=== PATIENT | female | born 1960 | race Caucasian/White ===

== ENCOUNTER 2016-04-24 23:04 | Emergency (ER) | payer MEDICARE, OTHER, MEDICAID ==
[~2016-04-24] VITALS: Ht 157.5 cm; Wt 76.0 kg
[~2016-04-24 23:04] MED LIST: CYCL5TAB PO; FENT50DI T-DERMAL; FISH500C; FURO1TAB60 PO; LORA-373 PO; LYRI50CA PO; MORP15IN3; NITR50VP; PREV30CA11 PO; PROM25TA5 PO; ROSU20 PO; SERO300T PO; WARF-60 PO; [UNRECOGNIZED DRUG - CODE] PO
[2016-04-24 23:17] VITALS: BP 103/59; PULSE 69; RESP 18; TEMP 98.5; O2SAT 96
[2016-04-24] MEDS ORDERED: CARV3.12 PO (23:43)
[2016-04-24] MEDS ORDERED: COUM7.5T PO (23:43)
--- NOTE | 2016-04-24 23:52 | PD ---
HPI Chief Complaint: Bleeding Time Seen by Provider: 23:44 Travel History International Travel<30 days: No Contact w/Intl Traveler<30days: No Traveled to known affect area: No History of Present Illness HPI This 55-year-old female had heavy bleeding from a scratch on her leg. She has a history of angina and is on Coumadin. She had surgery recently and was taken off her Coumadin. She has been restarting it. Yesterday she scratch leg and had some bleeding from her left leg which tonight she was having heavy bleeding from her left right leg. She just had a superficial scratch. Paramedics were able to control the bleeding with a pressure dressing. She says she fell 2 days ago and has a large bruise on her buttock. She says she's been having pain in her buttock. She is on a lot of pain medication PFSH Past Medical History Hx Anticoagulant Therapy: Yes Arthritis: Yes (CHRONIC BACK & DJD) Asthma: No Autoimmune Disease: No Blood Disorders: No Bipolar Disorder: Yes Anxiety: Yes Depression: Yes Heart Rhythm Problems: Yes Cancer: Yes (MELANOMA FACE) Cardiac Catheterization: Yes (X8) Cardiovascular Problems: Yes High Cholesterol: Yes Chemotherapy: No Chest Pain: Yes Congestive Heart Failure: Yes COPD: No Cerebrovascular Accident: Yes Coronary Artery Disease: Yes Diabetes: Yes (borderline) Patient Takes Glucophage: Yes Diminished Hearing: No Deep Vein Thrombosis: Yes ( & PE) Endocrine: Yes Gastrointestinal Disorders: Yes (GASTROPORESIS, GERD, ULCER HX) GERD: No Glaucoma: No Genitourinary: No Headaches: Yes Hepatitis: No Hiatal Hernia: Yes Hypertension: Yes Immune Disorder: No Kidney Stones: Yes Musculoskeletal: Yes ( SHATTERED COCCYX, SLIPPED DISCS, ARTHRITIS) Neurologic: Yes (TIA, NUMBNESS ARMS/ HANDS (TRANSIENT)) Psychiatric: Yes (CLAUSTRAPHBIA, ANXIETY) Reproductive: No Respiratory: Yes Integumentary: Yes (ULCER BETWEEN LEGS) Immunizations Current: Yes Migraines: No Myocardial Infarction: No Radiation Therapy: No Renal Failure: No Seizures: No Sickle Cell Disease: No Sleep Apnea: No Thyroid Disease: No Ulcer: No Tetanus Vaccination: Unknown Influenza Vaccination: No PNEUMOCCOCAL Vaccine (Year): 2 ?: Not Menopausal: Yes : 4 Para: 3 Miscarriage: 1 Past Surgical History Abdominal Surgery: Yes (CHOLECYSTECTOMY, APPENDECTOMY) AICD: No Appendectomy: Yes Arteriovenous Shunt: No Body Medical Devices: HARDWARE LEFT LEG Cardiac Surgery: Yes (CABG X 2) Cholecystectomy: Yes Coronary Artery Bypass Graft: Yes (X 2 VESSELS) Coronary Stent: Yes (X1) Ear Surgery: No Endocrine Surgery: No Eye Surgery: No Genitourinary Surgery: No Gynecologic Surgery: Yes (HYSTERECTOMY) Hysterectomy: Yes Insulin Pump: No Joint Replacement: No Neurologic Surgery: No Oral Surgery: No Pacemaker: No Thoracic Surgery: Yes Other Surgery: Yes Social History Alcohol Use: No (DENIES) Tobacco Use: No (today she denies using any tobacco products) Substance Use: No Allergies-Medications (Allergen,Severity, Reaction): Coded Allergies: No Known Allergies (Verified , 04/24/16) Reported Meds & Prescriptions Reported Meds & Active Scripts Active Fentanyl Patch 72 HR (Fentanyl) 50 Mcg/Hr Patch 50 Mcg T-DERMAL Q72H Remove old patch when new one placed. Lyrica (Pregabalin) 50 Mg Cap 50 Mg PO BID Reported Carvedilol 3.125 Mg Tab 3.125 Mg PO BID Coumadin (Warfarin) 7.5 Mg Tab 7.5 Mg PO DAILY Seroquel (Quetiapine Fumarate) 300 Mg Tab 300 Mg PO BID Crestor (Rosuvastatin Calcium) 20 Mg Tab 20 Mg PO DAILY Fish Oil ([place]-3 Fatty Acids) Unknown Strength Cap Unknown Dose Flexeril (Cyclobenzaprine HCl) 5 Mg Tab 5 Mg PO TID Lasix (Furosemide) 40 Mg Tab 40 Mg PO DAILY Lipofen (Fenofibrate) 50 Mg Cap 50 Mg PO DAILY Lorazepam 0.5 Mg Tab 0.5 Mg PO DAILY PRN Nitroglycerin 5 Mg/Ml Inj 0.4 Phenergan (Promethazine HCl) 25 Mg Tab 25 Mg PO ONCE Prevacid (Lansoprazole) 30 Mg Capdr 40 Mg PO DAILY Morphine Sulfate 15 Mg/Ml Inj 30 Review of Systems General / Constitutional: No: Fever, Chills Eyes: No: Diploplia, Blurred Vision Cardiovascular: No: Chest Pain or Discomfort Gastrointestinal: No: Nausea, Vomiting Musculoskeletal: Positive: Myalgias, Pain Hematologic/Lymphatic: Positive: Easy Bruising Physical Exam Narrative * GENERAL: Well-developed female SKIN: Warm and dry. There is a large ecchymosis on the low back/buttock area. The site of bleeding was a small varicocele on the leg which is not bleeding at this time HEAD: Atraumatic. Normocephalic. EYES: Pupils equal and round. No scleral icterus. No injection or drainage. ENT: No nasal bleeding or discharge. Mucous membranes pink and moist. NECK: Trachea midline. No JVD. CARDIOVASCULAR: Regular rate and rhythm. No murmur appreciated. RESPIRATORY: No accessory muscle use. Clear to auscultation. Breath sounds equal bilaterally. GASTROINTESTINAL: Abdomen soft, non-tender, nondistended. Hepatic and splenic margins not palpable. MUSCULOSKELETAL: No obvious deformities. No clubbing. No cyanosis. No edema. NEUROLOGICAL: Awake and alert. No obvious cranial nerve deficits. Motor grossly within normal limits. Normal speech. There is tenderness of the lower back PSYCHIATRIC: Appropriate mood and affect; insight and judgment normal. Data Data Last Documented VS Vital Signs Date Time Temp Pulse Resp B/P Pulse Ox O2 Delivery O2 Flow Rate FiO2 04/24/16 23:23 69 18 96 Room Air 04/24/16 23:17 98.5 103/59 Orders Complete Blood Count With Diff (04/24/16 23:44) Prothrombin Time / Inr (Pt) (04/24/16 23:44) Act Partial Throm Time (Ptt) (04/24/16 23:44) Spine, Lumbar - Ltd (Ap & Lat) (04/24/16 23:44) MDM Medical Decision Making Medical Screen Exam Complete: Yes Emergency Medical Condition: Yes Medical Record Reviewed: Yes Differential Diagnosis Differential includes coagulopathy, bleeding due to varicose vein, back injury Narrative Course PT/INR and CBC have been ordered as well as x-rays of the lumbar spine Diagnosis Primary Impression: Bleeding from varicose vein Qualified Code: I83.891 - Bleeding from varicose vein, right Disposition: DISCHARGE HOME Condition: Stable Rajeev Rainey MD Apr 24, 2016 23:52
--- NOTE | 2016-04-25 00:14 | RADHPO ---
EXAM DATE/TIME: 04/24/2016 23:53 [facility] COMPARISON: No previous studies available for comparison. INDICATIONS : Lower back pain after patient fell 3 days ago MEDICAL HISTORY : None. SURGICAL HISTORY : None. ENCOUNTER: Initial ACUITY: 3 days PAIN SCORE: 8/10 LOCATION: Lumbar spine FINDINGS: Grade 1 anterolisthesis of L4 on L5 with multilevel disc space narrowing. Anterior osteophyte formati on at L2-L5 noted. Facet hypertrophy at L4-5 and L5-S1. No compression deformity. CONCLUSION: Degenerative changes are noted as above. Jaden Vance MD on April 25, 2016 at 0:12 Board Certified Radiologist. This report was verified electronically.
[2016-04-25 00:26] LABS: AUTOMATED NEUTROPHIL # 3.6 TH/MM3 (1.8-7.7); BASOPHIL # 0.1 TH/MM3 (0-0.2); BASOPHIL % 0.7 % (0.0-2.0); EOSINOPHIL # 0.7 TH/MM3 (0-0.4); EOSINOPHIL % 9.7 % (0.0-4.0); HEMO FLAGS DIFF FINAL; LYMPH % 33.2 % (9.0-44.0); LYMPHOCYTE # 2.5 TH/MM3 (1.0-4.8); MEAN CELL VOLUME 86.1 FL (80.0-100.0); MEAN CORPUSCULAR HEMOGLOBIN 28.3 PG (27.0-34.0); MEAN CORPUSCULAR HGB CONC 32.8 % (32.0-36.0); MONO % 7.4 % (0.0-8.0); PLATELET COUNT 239 TH/MM3 (150-450); RED BLOOD COUNT 4.06 MIL/MM3 (4.00-5.30); RED CELL DISTRIBUTION WIDTH 13.6 % (11.6-17.2); WHITE BLOOD COUNT 7.5 TH/MM3 (4.0-11.0)
[2016-04-25 00:37] LABS: APTT (PATIENT) 33.9 SEC (24.3-30.1); INTERNATIONAL NORMALIZED RATIO 1.6 RATIO; PROTHROMBIN TIME - PATIENT 18.4 SEC (9.8-11.6)
[2016-04-25 00:43] VITALS: BP 102/60; PULSE 83; RESP 18; O2SAT 96
--- NOTE | 2016-04-25 01:18 | PD ---
Physical Exam Time Seen by Provider: 01:[address] Sanders left this patient with me to check the results of the coagulation profile as well as the lumbar spine. He expected the patient would be discharged. Data Data Last Documented VS Vital Signs Date Time Temp Pulse Resp B/P Pulse Ox O2 Delivery O2 Flow Rate FiO2 04/25/16 00:43 83 18 102/60 96 Room Air 04/24/16 23:17 98.5 Orders Complete Blood Count With Diff (04/24/16 23:44) Prothrombin Time / Inr (Pt) (04/24/16 23:44) Act Partial Throm Time (Ptt) (04/24/16 23:44) Spine, Lumbar - Ltd (Ap & Lat) (04/24/16 23:44) Labs Laboratory Tests Test 04/25/16 00:12 White Blood Count 7.5 TH/MM3 Red Blood Count 4.06 MIL/MM3 Hemoglobin 11.5 GM/DL Hematocrit 35.0 % Mean Corpuscular Volume 86.1 FL Mean Corpuscular Hemoglobin 28.3 PG Mean Corpuscular Hemoglobin 32.8 % Concent Red Cell Distribution Width 13.6 % Platelet Count 239 TH/MM3 Mean Platelet Volume 8.8 FL Neutrophils (%) (Auto) 49.0 % Lymphocytes (%) (Auto) 33.2 % Monocytes (%) (Auto) 7.4 % Eosinophils (%) (Auto) 9.7 % Basophils (%) (Auto) 0.7 % Neutrophils # (Auto) 3.6 TH/MM3 Lymphocytes # (Auto) 2.5 TH/MM3 Monocytes # (Auto) 0.6 TH/MM3 Eosinophils # (Auto) 0.7 TH/MM3 Basophils # (Auto) 0.1 TH/MM3 CBC Comment DIFF FINAL Differential Comment Prothrombin Time 18.4 SEC Prothromb Time International 1.6 RATIO Ratio Activated Partial 33.9 SEC Thromboplast Time [facility] Medical Record Reviewed: Yes Supervised Visit with ДМИТРИЙ: Yes Interpretation(s) X-rays of the lumbar spine show degenerative changes but no fracture or subluxation. The CBC is normal with normal platelets and a hemoglobin of 11.5 and hematocrit of 35. The coagulation profile shows a ProTime of 18.4, INR 1.6 , APTT of 33.9. Differential Diagnosis Fracture lumbar spine, subluxation lumbar spine, acute lumbar strain, anemia, thrombocytopenia, coagulopathy from Coumadin Narrative Course The patient has an acute lumbosacral strain. Her INR is only 1.6. The patient has not bled since a compressive bandage was put on her leg. Her platelets are normal. Diagnosis Primary Impression: Bleeding from varicose vein Qualified Code: I83.891 - Bleeding from varicose vein, right Additional Instruction: Keep the compressive bandage on for several days. We gave you the results of your blood work, take the blood work to your primary care physician. Disposition: 01 DISCHARGE HOME Condition: Stable Toño Cali MD Apr 25, 2016 01:18
[2016-04-25 01:27] VITALS: BP 95/50
== END 2016-04-25 01:46 | disposition home or self-care (01) ==
LOC: PHED 23:04
DX: I83.891 Varicose veins of right lower extremity with other complications (principal); I10 Essential (primary) hypertension; E78.00 Pure hypercholesterolemia, unspecified; E11.9 Type 2 diabetes mellitus without complications; Z79.01 Long term (current) use of anticoagulants
CPT/HCPCS: 72100; 85025; 85610; 85730; 99284

== ENCOUNTER 2017-01-09 01:20 | Emergency (ER) | payer MEDICARE, OTHER ==
[~2017-01-09] VITALS: Ht 157.5 cm; Wt 68.0 kg
[~2017-01-09 01:20] MED LIST changes: +CARV3.12 PO; +COUM7.5T PO; -LORA-373 PO; +LORA0.5T PO; -PREV30CA11 PO; +PREV30CA36 PO; -WARF-60 PO
[2017-01-09 01:33] VITALS: BP 163/81; PULSE 73; RESP 18; TEMP 98.4; O2SAT 100
[2017-01-09] MEDS ORDERED: NITR1SUB3 SL (01:53)
[2017-01-09] MEDS ORDERED: morphine PO (01:53)
[2017-01-09] MEDS ORDERED: FURO80TA PO (01:53)
[2017-01-09 02:30] VITALS: BP 120/65; PULSE 74; RESP 16; O2SAT 94
--- NOTE | 2017-01-09 02:43 | PD ---
HPI Chief Complaint: Chest Pain Time Seen by Provider: 02:26 Travel History International Travel<30 days: No Contact w/Intl Traveler<30days: No Traveled to known affect area: No History of Present Illness HPI The patient is a 56-year-old female with a strong history of coronary artery disease, she has had 3 coronary bypass grafts, last one being 7 years ago. Her last angiogram was done 3 years ago. She is on Coumadin for pulmonary emboli. She complains of a stabbing, sharp, pressure pain in the near the left breast beginning at 6:30 PM yesterday. It is a constant pain and associated with nausea, shortness of breath, diaphoresis but there is no radiation of pain. She denies any syncopal or near syncopal spells. She had a stress test done 6 months ago[address] She states Dr. Almonte is her doctor naturopathic and she wanted to do another catheterization but never got around to it. She quit smoking 15 years ago. She does have a strong family history of heart disease and this is why she had her initial coronary catheterization, always stress test and other tests were normal. PFSH Past Medical History Hx Anticoagulant Therapy: Yes Arthritis: Yes (CHRONIC BACK & DJD) Asthma: No Atrial Fibrillation: Yes Autoimmune Disease: No Blood Disorders: No Bipolar Disorder: Yes Anxiety: Yes Depression: Yes Heart Rhythm Problems: Yes Cancer: Yes (MELANOMA FACE) Cardiac Catheterization: Yes (X8) Cardiovascular Problems: Yes High Cholesterol: Yes Chemotherapy: No Chest Pain: Yes Congestive Heart Failure: Yes COPD: No Cerebrovascular Accident: Yes Coronary Artery Disease: Yes Diabetes: Yes (borderline) Diminished Hearing: No Deep Vein Thrombosis: Yes ( & PE) Endocrine: Yes Gastrointestinal Disorders: Yes (GASTROPORESIS, GERD, ULCER HX) GERD: No Glaucoma: No Genitourinary: No Headaches: Yes Hepatitis: No Hiatal Hernia: Yes Hypertension: Yes Immune Disorder: No Kidney Stones: Yes Musculoskeletal: Yes ( SHATTERED COCCYX, SLIPPED DISCS, ARTHRITIS) Neurologic: Yes (TIA, NUMBNESS ARMS/ HANDS (TRANSIENT)) Psychiatric: Yes (CLAUSTRAPHBIA, ANXIETY) Reproductive: No Respiratory: Yes Integumentary: Yes (ULCER BETWEEN LEGS) Immunizations Current: Yes Migraines: No Myocardial Infarction: No Radiation Therapy: No Renal Failure: No Seizures: No Sickle Cell Disease: No Sleep Apnea: No Thyroid Disease: No Ulcer: No Tetanus Vaccination: > 5 Years Influenza Vaccination: No PNEUMOCCOCAL Vaccine (Year): 2 ?: Not LMP: hysterectomy Menopausal: Yes : 4 Para: 3 Miscarriage: 1 Past Surgical History Abdominal Surgery: Yes (CHOLECYSTECTOMY, APPENDECTOMY) AICD: No Appendectomy: Yes Arteriovenous Shunt: No Body Medical Devices: HARDWARE LEFT LEG Cardiac Surgery: Yes (CABG X 2) Cholecystectomy: Yes Coronary Artery Bypass Graft: Yes (X 2 VESSELS) Coronary Stent: Yes (X1) Ear Surgery: No Endocrine Surgery: No Eye Surgery: No Genitourinary Surgery: No Gynecologic Surgery: Yes (HYSTERECTOMY) Hysterectomy: Yes Insulin Pump: No Joint Replacement: No Neurologic Surgery: No Oral Surgery: No Pacemaker: No Thoracic Surgery: Yes Other Surgery: Yes Social History Alcohol Use: No (DENIES) Tobacco Use: No (today she denies using any tobacco products) Substance Use: No Allergies-Medications (Allergen,Severity, Reaction): Coded Allergies: No Known Allergies (Verified Adverse Reaction, Unknown, 01/09/17) Reported Meds & Prescriptions Reported Meds & Active Scripts Active Reported Furosemide 80 Mg Tab 80 Mg PO DAILY Nitroglycerin SL (Nitroglycerin) 0.4 Mg Subl 0.4 Mg SL DIRECTED PRN ONE TABLET UNDER THE TONGUE NEEDED FOR CHEST PAIN, MAY REPEAT EVERY FIVE MINUTES FOR A TOTAL OF 3 DOSES OR CALL 911 IF NO RELIEF [morphine] 30 Mg PO Carvedilol 3.125 Mg Tab 3.125 Mg PO BID Coumadin (Warfarin) 7.5 Mg Tab 7.5 Mg PO DAILY Crestor (Rosuvastatin Calcium) 20 Mg Tab 20 Mg PO DAILY Fish Oil ([place]-3 Fatty Acids) Unknown Strength Cap Unknown Dose Flexeril (Cyclobenzaprine HCl) 5 Mg Tab 5 Mg PO TID Lipofen (Fenofibrate) 50 Mg Cap 50 Mg PO DAILY Phenergan (Promethazine HCl) 25 Mg Tab 25 Mg PO ONCE Prevacid (Lansoprazole) 30 Mg Capdr 40 Mg PO DAILY Review of Systems Except as stated in HPI: all other systems reviewed are Neg Physical Exam Narrative GENERAL: The patient is alert, oriented 3, anxious appearing in slight apparent distress with her chest discomfort. The blood pressure is 163/81 but the rest the vital signs are normal. SKIN: Focused skin assessment warm/dry. HEAD: Atraumatic. Normocephalic. EYES: Pupils equal and round. No scleral icterus. No injection or drainage. ENT: No nasal bleeding or discharge. Mucous membranes pink and moist. NECK: Trachea midline. No JVD. CARDIOVASCULAR: Regular rate and rhythm. No murmur appreciated. I can completely reproduce the patient's pain by pressing on the chest wall where she perceives her pain. RESPIRATORY: No accessory muscle use. Clear to auscultation. Breath sounds equal bilaterally. GASTROINTESTINAL: Abdomen soft, non-tender, nondistended. Hepatic and splenic margins not palpable. MUSCULOSKELETAL: No obvious deformities. No clubbing. No cyanosis. No edema. NEUROLOGICAL: Awake and alert. No obvious cranial nerve deficits. Motor grossly within normal limits. Normal speech. PSYCHIATRIC: Appropriate mood and affect; insight and judgment normal. Data Data Last Documented VS Vital Signs Date Time Temp Pulse Resp B/P (MAP) Pulse Ox O2 Delivery O2 Flow Rate FiO2 01/09/17 03:30 98.3 70 16 106/68 (81) 100 Nasal Cannula 2.00 Orders Orders Electrocardiogram (01/09/17 02:37) Ckmb (Isoenzyme) Profile (01/09/17 02:37) Complete Blood Count With Diff (01/09/17 02:37) Comprehensive Metabolic Panel (01/09/17 02:37) Magnesium (Mg) (01/09/17 02:37) Prothrombin Time / Inr (Pt) (01/09/17 02:37) Troponin I (01/09/17 02:37) Chest, Single Ap (01/09/17 02:37) Ecg Monitoring (01/09/17 02:37) Bilateral Bp Monitoring (01/09/17 02:37) Iv Access Insert/Monitor (01/09/17 02:37) Oximetry (01/09/17 02:37) Oxygen Administration (01/09/17 02:37) Sodium Chloride 0.9% Flush (Ns Flush) (01/09/17 02:45) CKMB (01/09/17 02:05) CKMB% (01/09/17 02:05) Morphine Inj (Morphine Inj) (01/09/17 03:15) Ondansetron Inj (Zofran Inj) (01/09/17 03:15) Labs Laboratory Tests Test 01/09/17 02:05 White Blood Count 7.0 TH/MM3 Red Blood Count 3.96 MIL/MM3 Hemoglobin 10.5 GM/DL Hematocrit 33.2 % Mean Corpuscular Volume 83.8 FL Mean Corpuscular Hemoglobin 26.5 PG Mean Corpuscular Hemoglobin Concent 31.6 % Red Cell Distribution Width 13.9 % Platelet Count 252 TH/MM3 Mean Platelet Volume 8.6 FL Neutrophils (%) (Auto) 53.9 % Lymphocytes (%) (Auto) 32.1 % Monocytes (%) (Auto) 6.7 % Eosinophils (%) (Auto) 6.6 % Basophils (%) (Auto) 0.7 % Neutrophils # (Auto) 3.7 TH/MM3 Lymphocytes # (Auto) 2.3 TH/MM3 Monocytes # (Auto) 0.5 TH/MM3 Eosinophils # (Auto) 0.5 TH/MM3 Basophils # (Auto) 0.0 TH/MM3 CBC Comment DIFF FINAL Differential Comment Prothrombin Time 12.8 SEC Prothromb Time International Ratio 1.2 RATIO Blood Urea Nitrogen 6 MG/DL Creatinine 0.74 MG/DL Random Glucose 91 MG/DL Total Protein 6.6 GM/DL Albumin 3.2 GM/DL Calcium Level 8.2 MG/DL Magnesium Level 1.9 MG/DL Alkaline Phosphatase 109 U/L Aspartate Amino Transf (AST/SGOT) 18 U/L Alanine Aminotransferase (ALT/SGPT) 23 U/L Total Bilirubin 0.3 MG/DL Sodium Level 138 MEQ/L Potassium Level 3.6 MEQ/L Chloride Level 103 MEQ/L Carbon Dioxide Level 30.7 MEQ/L Anion Gap 4 MEQ/L Estimat Glomerular Filtration Rate 81 ML/MIN Total Creatine Kinase 108 U/L Creatine Kinase MB 1.8 NG/ML Troponin I LESS THAN 0.02 NG/ML [facility] Medical Decision Making Medical Screen Exam Complete: Yes Emergency Medical Condition: Yes Medical Record Reviewed: Yes Interpretation(s) The EKG shows sinus rhythm with a rate of 72 and is completely normal. The CBC is normal except for hemoglobin of 10.5 and hematocrit of 33.2. The complete metabolic profile shows a calcium of 8.2, GFR of 81 and albumen 3.2 but is otherwise unremarkable. The troponin I is normal and the CK-MB is normal. The chest x-ray shows no acute cardiopulmonary disease. Differential Diagnosis Acute coronary disease, atypical chest pain, chest wall pain, drug seeking behavior, electrolyte disorder, anemia Narrative Course I discussed the patient with Dr. Almonte and she stated that the patient is constantly demanding of cardiac catheterization for herself and her son. She stated to have the patient call her office later on today. Diagnosis Primary Impression: Atypical chest pain Additional Instructions: Follow-up with Dr. Almonte's office later on today, give them a call. Med/Other Pt SpecificInfo: No Change to Meds Disposition: 01 DISCHARGE HOME Condition: Stable Toño Cali MD Jan 09, 2017 02:43
[2017-01-09] MEDS ORDERED: SODIUM CHLORIDE 0.9% FLUSH 10 ML FLUSH IVF PRN (02:45)
[2017-01-09 02:49] VITALS: BP_SYST 106; BP_SYST 119; BP_DIAS 53; BP_DIAS 71; PULSE 74; O2SAT 97
[2017-01-09 02:51] LABS: AUTOMATED NEUTROPHIL # 3.7 TH/MM3 (1.8-7.7); BASOPHIL % 0.7 % (0.0-2.0); EOSINOPHIL # 0.5 TH/MM3 (0-0.4); EOSINOPHIL % 6.6 % (0.0-4.0); HEMATOCRIT 33.2 % (35.0-46.0); HEMO FLAGS DIFF FINAL; LYMPH % 32.1 % (9.0-44.0); LYMPHOCYTE # 2.3 TH/MM3 (1.0-4.8); MEAN CELL VOLUME 83.8 FL (80.0-100.0); MEAN CORPUSCULAR HEMOGLOBIN 26.5 PG (27.0-34.0); MEAN CORPUSCULAR HGB CONC 31.6 % (32.0-36.0); MONO % 6.7 % (0.0-8.0); NEUT % 53.9 % (16.0-70.0); PLATELET COUNT 252 TH/MM3 (150-450); RED BLOOD COUNT 3.96 MIL/MM3 (4.00-5.30); RED CELL DISTRIBUTION WIDTH 13.9 % (11.6-17.2)
[2017-01-09 02:58] LABS: CHLORIDE 103 MEQ/L (98-107); POTASSIUM 3.6 MEQ/L (3.5-5.1); SODIUM (NA) 138 MEQ/L (136-145)
--- NOTE | 2017-01-09 03:00 | RADRPT ---
EXAM DATE/TIME: 01/09/2017 02:44 [facility] COMPARISON: CHEST SINGLE AP, October 08, 2015, 19:14. INDICATIONS : Chest pain for 24 hours MEDICAL HISTORY : Cardiovascular disease. SURGICAL HISTORY : CABG. ENCOUNTER: Initial ACUITY: 1 day PAIN SCORE: 6/10 LOCATION: Bilateral chest FINDINGS: The cardiac silhouette is normal in transverse diameter. Median sternotomy wires are present. The aor tic knob is prominent with tortuosity of the descending thoracic aorta. The lungs are free of acute p arenchymal opacity. No effusions are identified. CONCLUSION: 1. No acute cardiopulmonary disease. Naif Mayo MD on January 09, 2017 at 2:59 Board Certified Radiologist. This report was verified electronically.
[2017-01-09 03:02] LABS: ANION GAP 4 MEQ/L (5-15); BICARBONATE 30.7 MEQ/L (21.0-32.0); BLOOD UREA NITROGEN 6 MG/DL (7-18); MAGNESIUM 1.9 MG/DL (1.5-2.5)
[2017-01-09 03:05] LABS: ALT (GPT) 23 U/L (10-53); AST (GOT) 18 U/L (15-37); GLOMERULAR FILTRATION RATE 81 ML/MIN (>89)
[2017-01-09 03:06] LABS: INTERNATIONAL NORMALIZED RATIO 1.2 RATIO; PROTHROMBIN TIME - PATIENT 12.8 SEC (9.8-11.6)
[2017-01-09 03:07] LABS: TOTAL BILIRUBIN ADULT 0.3 MG/DL (0.2-1.0)
[2017-01-09 03:08] LABS: ALKALINE PHOSPHATASE 109 U/L (45-117); CREATINE KINASE 108 U/L (26-192)
[2017-01-09] MEDS ORDERED: MORPHINE SULFATE 8 MG/ML INJ IV PUSH ONE (03:15)
[2017-01-09] MEDS ORDERED: ONDANSETRON HCL 4 MG/2 ML VIAL IV ONE (03:15)
[2017-01-09 03:20] LABS: CKMB 1.8 NG/ML (0.5-3.6)
[2017-01-09 03:30] VITALS: BP 106/68; PULSE 70; RESP 16; TEMP 98.3; O2SAT 100
[2017-01-09 04:42] VITALS: BP 117/62; PULSE 75; RESP 16; O2SAT 98
--- NOTE | 2017-01-09 18:07 | EKG ---
Date Performed: 01/09/2017 Time Performed: 01:28:08 PTAGE: 56 years EKG: Sinus rhythm NORMAL ECG INTERPRETATION BASED ON A DEFAULT AGE OF 38 YEARS PREVIOUS TRACING : 10/11/2015 06.14 DOCTOR: Jimmy Hatfield Interpretating Date/Time 01/09/2017 18:06:23
== END 2017-01-09 04:51 | disposition home or self-care (01) ==
LOC: PHED 01:20
DX: R07.89 Other chest pain (principal); R11.0 Nausea; R06.02 Shortness of breath; R61 Generalized hyperhidrosis; R73.03 Prediabetes; I10 Essential (primary) hypertension; Z79.01 Long term (current) use of anticoagulants; Z87.39 Personal history of other diseases of the musculoskeletal system and connective tissue; Z86.79 Personal history of other diseases of the circulatory system; Z86.59 Personal history of other mental and behavioral disorders; Z85.828 Personal history of other malignant neoplasm of skin; E78.00 Pure hypercholesterolemia, unspecified; Z86.718 Personal history of other venous thrombosis and embolism; Z87.19 Personal history of other diseases of the digestive system; Z87.442 Personal history of urinary calculi; Z86.69 Personal history of other diseases of the nervous system and sense organs
CPT/HCPCS: 71010; 80053; 82550; 82552; 83735; 84484; 85025; 85610; 93005; 96361; 96374; 96375; 99285; J2270; J2405

== ENCOUNTER 2017-07-16 20:43 | Emergency (ER) | payer MEDICARE, MEDICAID ==
[~2017-07-16] VITALS: Ht 157.5 cm; Wt 82.7 kg
[~2017-07-16 20:43] MED LIST changes: -FENT50DI T-DERMAL; -FURO1TAB60 PO; +FURO80TA PO; -LORA0.5T PO; -LYRI50CA PO; -MORP15IN3; +NITR1SUB3 SL; -NITR50VP; -PROM25TA5 PO; -SERO300T PO; +morphine PO
[2017-07-16 20:52] VITALS: BP 130/63; PULSE 84; RESP 16; TEMP 99.7; O2SAT 98
[2017-07-16] MEDS ORDERED: GABA300C5 PO (21:27)
[2017-07-16 21:28] VITALS: O2SAT 98
[2017-07-16] MEDS ORDERED: MORPHINE SULFATE 2 MG/ML SYRINGE IV PUSH ONE (21:30)
[2017-07-16] MEDS ORDERED: SODIUM CHLORIDE 0.9% FLUSH 10 ML FLUSH IV FLUSH PRN (21:30)
[2017-07-16 21:42] LABS: AUTOMATED NEUTROPHIL # 4.6 TH/MM3 (1.8-7.7); BASOPHIL # 0.1 TH/MM3 (0-0.2); BASOPHIL % 0.7 % (0.0-2.0); EOSINOPHIL # 0.6 TH/MM3 (0-0.4); HEMATOCRIT 31.7 % (35.0-46.0); HEMOGLOBIN 10.3 GM/DL (11.6-15.3); LYMPH % 23.6 % (9.0-44.0); LYMPHOCYTE # 1.9 TH/MM3 (1.0-4.8); MEAN CELL VOLUME 80.3 FL (80.0-100.0); MEAN CORPUSCULAR HEMOGLOBIN 26.2 PG (27.0-34.0); MEAN CORPUSCULAR HGB CONC 32.6 % (32.0-36.0); MEAN PLATELET VOLUME 7.9 FL (7.0-11.0); MONO % 8.4 % (0.0-8.0); MONOCYTE # 0.7 TH/MM3 (0-0.9); NEUT % 59.3 % (16.0-70.0); PLATELET COUNT 327 TH/MM3 (150-450); RED BLOOD COUNT 3.95 MIL/MM3 (4.00-5.30); RED CELL DISTRIBUTION WIDTH 14.1 % (11.6-17.2); WHITE BLOOD COUNT 7.9 TH/MM3 (4.0-11.0)
[2017-07-16 21:52] LABS: CHLORIDE 105 MEQ/L (98-107); SODIUM (NA) 138 MEQ/L (136-145)
[2017-07-16 21:55] LABS: ALBUMIN 3.3 GM/DL (3.4-5.0); BICARBONATE 26.7 MEQ/L (21.0-32.0); CALCIUM 8.8 MG/DL (8.5-10.1); GLUCOSE,RANDOM 105 MG/DL (74-106)
[2017-07-16 21:56] LABS: BLOOD UREA NITROGEN 10 MG/DL (7-18)
[2017-07-16 21:59] LABS: ALT (GPT) 17 U/L (10-53); AST (GOT) 16 U/L (15-37); CREATININE 0.65 MG/DL (0.50-1.00); GLOMERULAR FILTRATION RATE 93 ML/MIN (>89)
[2017-07-16 22:00] LABS: TOTAL BILIRUBIN ADULT 0.2 MG/DL (0.2-1.0); TOTAL PROTEIN 7.1 GM/DL (6.4-8.2)
[2017-07-16 22:02] LABS: ALKALINE PHOSPHATASE 129 U/L (45-117)
--- NOTE | 2017-07-16 22:05 | PD ---
HPI Chief Complaint: Complaint Time Seen by Provider: 21:04 Travel History International Travel<30 days: No Contact w/Intl Traveler<30days: No Traveled to known affect area: No History of Present Illness HPI 57-year-old female came to the emergency room with history of unable to urinate in past 24 hours. Patient says that she has history of kidney stone and had [address] Mckenna the urologist but apparently she was told after the last one that the stone is still there and did not shatter. She talked to her line painting machine operator about the fact that she has not been able to urinate and she was asked to come to the emergency room to get a CAT scan. She is also noticed that her right leg has been swelling. Patient has history of DVT and she is on Coumadin. Vital signs are otherwise stable. No significant pain but the main concern of coming here is the difficulty in urination. PFSH Past Medical History Narrative Medical List of her past medical, surgical, social and family history is reviewed from the nursing note Hx Anticoagulant Therapy: Yes Arthritis: Yes (CHRONIC BACK & DJD) Asthma: No Atrial Fibrillation: Yes Autoimmune Disease: No Blood Disorders: No Bipolar Disorder: Yes Anxiety: Yes Depression: Yes Heart Rhythm Problems: Yes Cancer: Yes (MELANOMA FACE) Cardiac Catheterization: Yes (X8) Cardiovascular Problems: Yes (CHF, Open Heart surgery) High Cholesterol: Yes Chemotherapy: No Chest Pain: Yes Congestive Heart Failure: Yes COPD: No Cerebrovascular Accident: Yes Coronary Artery Disease: Yes Diabetes: Yes (borderline) Patient Takes Glucophage: No Diminished Hearing: No Deep Vein Thrombosis: Yes ( & PE) Endocrine: Yes Gastrointestinal Disorders: Yes (GASTROPORESIS, GERD, ULCER HX) GERD: No Glaucoma: No Genitourinary: No Headaches: Yes Hepatitis: No Hiatal Hernia: Yes Heparin Induced Thrombocytopen: No Hypertension: Yes Immune Disorder: No Implanted Vascular Access Dvce: No Kidney Stones: Yes Medical other: No Musculoskeletal: Yes ( SHATTERED COCCYX, SLIPPED DISCS, ARTHRITIS) Neurologic: Yes (TIA, NUMBNESS ARMS/ HANDS (TRANSIENT)) Psychiatric: Yes (CLAUSTRAPHBIA, ANXIETY) Reproductive: No Integumentary: Yes (ULCER BETWEEN LEGS) Immunizations Current: Yes Migraines: No Myocardial Infarction: Yes Radiation Therapy: No Renal Failure: No Seizures: No Sickle Cell Disease: No Sleep Apnea: No Thyroid Disease: No Ulcer: No Tetanus Vaccination: Unknown Influenza Vaccination: Yes PNEUMOCCOCAL Vaccine (Year): 2 ?: Not Menopausal: Yes : 4 Para: 3 Miscarriage: 1 Past Surgical History Abdominal Surgery: Yes (CHOLECYSTECTOMY, APPENDECTOMY) AICD: No Appendectomy: Yes Arteriovenous Shunt: No Body Medical Devices: HARDWARE LEFT LEG Cardiac Surgery: Yes (CABG X 2) Cholecystectomy: Yes Coronary Artery Bypass Graft: Yes Coronary Stent: Yes (X1) Ear Surgery: No Endocrine Surgery: No Eye Surgery: No Genitourinary Surgery: No Gynecologic Surgery: Yes (HYSTERECTOMY) Hysterectomy: Yes Insulin Pump: No Joint Replacement: No Neurologic Surgery: No Oral Surgery: No Pacemaker: No Thoracic Surgery: Yes Other Surgery: Yes Social History Alcohol Use: No Tobacco Use: No Substance Use: No Allergies-Medications (Allergen,Severity, Reaction): Coded Allergies: No Known Allergies (Verified Adverse Reaction, Unknown, 07/16/17) Comments No known drug allergies. Reported Meds & Prescriptions Reported Meds & Active Scripts Active Reported Gabapentin 300 Mg Cap 300 Mg PO TID Furosemide 80 Mg Tab 80 Mg PO DAILY Nitroglycerin SL (Nitroglycerin) 0.4 Mg Subl 0.4 Mg SL DIRECTED PRN ONE TABLET UNDER THE TONGUE NEEDED FOR CHEST PAIN, MAY REPEAT EVERY FIVE MINUTES FOR A TOTAL OF 3 DOSES OR CALL 911 IF NO RELIEF [morphine] 30 Mg PO Carvedilol 3.125 Mg Tab 3.125 Mg PO BID Coumadin (Warfarin) 7.5 Mg Tab 7.5 Mg PO DAILY Crestor (Rosuvastatin Calcium) 20 Mg Tab 20 Mg PO DAILY Fish Oil ([place]-3 Fatty Acids) Unknown Strength Cap Unknown Dose Flexeril (Cyclobenzaprine HCl) 5 Mg Tab 5 Mg PO TID Lipofen (Fenofibrate) 50 Mg Cap 50 Mg PO DAILY Prevacid (Lansoprazole) 30 Mg Capdr 40 Mg PO DAILY Narrative Medication List of her home medications reviewed from the nursing note. Review of Systems Except as stated in HPI: all other systems reviewed are Neg Genitourinary: Positive: Decreased Urinary Output Musculoskeletal: Positive: Edema Physical Exam Narrative GENERAL: Awake, alert, mild distress SKIN: Focused skin assessment warm/dry. HEAD: Atraumatic. Normocephalic. EYES: Pupils equal and round. No scleral icterus. No injection or drainage. ENT: No nasal bleeding or discharge. Mucous membranes pink and moist. NECK: Trachea midline. No JVD. CARDIOVASCULAR: Regular rate and rhythm. No murmur appreciated. RESPIRATORY: No accessory muscle use. Clear to auscultation. Breath sounds equal bilaterally. GASTROINTESTINAL: Abdomen soft, non-tender, nondistended. Hepatic and splenic margins not palpable. MUSCULOSKELETAL: No obvious deformities. No clubbing. No cyanosis. Right leg edema NEUROLOGICAL: Awake and alert. No obvious cranial nerve deficits. Motor grossly within normal limits. Normal speech. PSYCHIATRIC: Appropriate mood and affect; insight and judgment normal. Data Data Last Documented VS Vital Signs Date Time Temp Pulse Resp B/P (MAP) Pulse Ox O2 Delivery O2 Flow Rate FiO2 07/16/17 21:28 98 Room Air 07/16/17 20:52 99.7 84 16 130/63 (85) Orders Orders Complete Blood Count With Diff (07/16/17 21:17) Comprehensive Metabolic Panel (07/16/17 21:17) Urinalysis - C+S If Indicated (07/16/17 21:17) Ct Abd/Pel W/O Iv Contrast (07/16/17 21:17) Iv Access Insert/Monitor (07/16/17 21:17) Ecg Monitoring (07/16/17 21:17) Oximetry (07/16/17 21:17) Sodium Chloride 0.9% Flush (Ns Flush) (07/16/17 21:30) Electrocardiogram (07/16/17 21:17) B-Type Natriuretic Peptide (07/16/17 21:17) Bladder Scan PRN (07/16/17 21:17) Morphine Inj (Morphine Inj) (07/16/17 21:30) Urinary Catheter Insert/Apply (07/16/17 22:38) Ed Discharge Order (07/16/17 23:05) Labs Laboratory Tests Test 07/16/17 21:37 07/16/17 22:15 White Blood Count 7.9 TH/MM3 Red Blood Count 3.95 MIL/MM3 Hemoglobin 10.3 GM/DL Hematocrit 31.7 % Mean Corpuscular Volume 80.3 FL Mean Corpuscular Hemoglobin 26.2 PG Mean Corpuscular Hemoglobin Concent 32.6 % Red Cell Distribution Width 14.1 % Platelet Count 327 TH/MM3 Mean Platelet Volume 7.9 FL Neutrophils (%) (Auto) 59.3 % Lymphocytes (%) (Auto) 23.6 % Monocytes (%) (Auto) 8.4 % Eosinophils (%) (Auto) 8.0 % Basophils (%) (Auto) 0.7 % Neutrophils # (Auto) 4.6 TH/MM3 Lymphocytes # (Auto) 1.9 TH/MM3 Monocytes # (Auto) 0.7 TH/MM3 Eosinophils # (Auto) 0.6 TH/MM3 Basophils # (Auto) 0.1 TH/MM3 CBC Comment DIFF FINAL Differential Comment Blood Urea Nitrogen 10 MG/DL Creatinine 0.65 MG/DL Random Glucose 105 MG/DL Total Protein 7.1 GM/DL Albumin 3.3 GM/DL Calcium Level 8.8 MG/DL Alkaline Phosphatase 129 U/L Aspartate Amino Transf (AST/SGOT) 16 U/L Alanine Aminotransferase (ALT/SGPT) 17 U/L Total Bilirubin 0.2 MG/DL Sodium Level 138 MEQ/L Potassium Level 3.9 MEQ/L Chloride Level 105 MEQ/L Carbon Dioxide Level 26.7 MEQ/L Anion Gap 6 MEQ/L Estimat Glomerular Filtration Rate 93 ML/MIN B-Type Natriuretic Peptide 79 PG/ML Urine Color YELLOW Urine Turbidity CLEAR Urine pH 5.5 Urine Specific [place] 1.025 Urine Protein NEG mg/dL Urine Glucose (UA) NEG mg/dL Urine Ketones NEG mg/dL Urine Occult Blood NEG Urine Nitrite NEG Urine Bilirubin NEG Urine Urobilinogen 0.2 MG/DL Urine Leukocyte Esterase NEG Urine RBC 0-2 /hpf Urine WBC 0-2 /hpf Urine Squamous Epithelial Cells 0-5 /hpf Urine Bacteria NONE /hpf Microscopic Urinalysis Comment CATH-CULT NOT IND MDM Medical Decision Making Medical Screen Exam Complete: Yes Emergency Medical Condition: Yes Medical Record Reviewed: Yes Interpretation(s) Twelve-lead EKG was reviewed by me. Normal sinus rhythm, normal axis, nonspecific ST-T wave changes. Heart rate of 68 bpm Differential Diagnosis Obstructive uropathy, CHF, renal failure Narrative Course 10:04 PM awaiting for blood test result. I have ordered CT scan abdomen and pelvis which has been done and pending radiologist report. I looked at the CT myself and did not see any signs of obstruction. Did not see any remarkable calculus. 11:05 PM all the blood test results and UA is back and within normal limits. CT scan just shows nephrolithiasis but nonobstructing calculus. Since patient insists that she cannot urinate I have ordered for a Oliveros catheter and she will go home with Oliveros catheter to follow-up with urology. Procedures EKG Prior to Arrival: No Diagnosis Primary Impression: Urinary obstruction Additional Impression: Pedal edema Additional Instructions: Please follow-up with your urologist regarding the Oliveros catheter. Return to the ER if condition worsens or any other new concerns. Disposition: 01 DISCHARGE HOME Condition: Stable Feliberto Gould MD July 16, 2017 22:05
[2017-07-16 22:28] LABS: BILIRUBIN, URINE NEG (NEG); BLOOD, URINE NEG (NEG); GLUCOSE,URINE NEG (NEG); KETONE, URINE NEG (NEG); NITRITE,URINE NEG (NEG); PH, URINE 5.5 (5.0-8.5); URINE COLOR YELLOW (YELLW/STRAW); URINE LEUKOCYTE ESTERASE NEG (NEG)
[2017-07-16 22:34] LABS: RBC, URINE 0-2 /hpf (0-3); SQUAMOUS EPITHELIAL CELL URINE 0-5 /hpf (0-5); WBC, URINE 0-2 /hpf (0-5)
--- NOTE | 2017-07-16 23:00 | RADRPT ---
EXAM DATE/TIME: 07/16/2017 21:37 [facility] COMPARISON: No previous studies available for comparison. INDICATIONS : Patient complains of trouble urinating, history of kidney stones. ORAL CONTRAST: No oral contrast ingested. RADIATION DOSE: 12.76 CTDIvol (mGy) MEDICAL HISTORY : Renal calculi. Cardiovascular disease Hypertension.A fib, CHF SURGICAL HISTORY : Appendectomy. Cholecystectomy.CABGlithrotripsy ENCOUNTER: Initial ACUITY: 1 day PAIN SCALE: 6/10 LOCATION: lower quadrant abdomen TECHNIQUE: Volumetric scanning of the abdomen and pelvis was performed. Using automated exposure control and ad justment of the mA and/or kV according to patient size, radiation dose was kept as low as reasonably achievable to obtain optimal diagnostic quality images. DICOM format image data is available electro nically for review and comparison. FINDINGS: LOWER LUNGS: The visualized lower lungs are clear. LIVER: Homogeneous density without lesion. There is no dilation of the biliary tree. The gallbladder is ab sent. SPLEEN: Normal size without lesion. PANCREAS: Within normal limits. KIDNEYS: There is a 6 mm calcification seen in the posterior superior left kidney and a 2 mm calcification at the inferior right kidney likely related to nonobstructing stones. The kidneys appear otherwise anitha l. No hydronephrosis is seen. ADRENAL GLANDS: Within normal limits. VASCULAR: There is no aortic aneurysm. BOWEL/MESENTERY: The stomach, small bowel, and colon demonstrate no acute abnormality. There is no free intraperitone al air or fluid. ABDOMINAL WALL: Within normal limits. RETROPERITONEUM: There is no lymphadenopathy. BLADDER: No wall thickening or mass. REPRODUCTIVE: The patient is status post hysterectomy. INGUINAL: There is no lymphadenopathy or hernia. MUSCULOSKELETAL: There is degenerative change in the lumbar spine. There is a implantable device seen of the left glut eal region with a lead extending into the spinal canal. CONCLUSION: Suspected nonobstructing renal stones bilaterally. Shen Morales MD on July 16, 2017 at 22:54 Board Certified Radiologist. This report was verified electronically.
[2017-07-16 23:10] VITALS: BP 102/56; PULSE 74; RESP 18; O2SAT 98
[2017-07-16 23:32] LABS: INTERNATIONAL NORMALIZED RATIO 1.8 RATIO; PROTHROMBIN TIME - PATIENT 18.7 SEC (9.8-11.6)
[2017-07-17 01:18] VITALS: BP 105/60; PULSE 76; RESP 18; O2SAT 97
--- NOTE | 2017-07-17 14:29 | EKG ---
Date Performed: 07/16/2017 Time Performed: 22:37:42 PTAGE: 57 years EKG: Sinus rhythm NORMAL ECG PREVIOUS TRACING : 01/09/2017 01.28 Since the previous tracing, no significant change noted DOCTOR: Naif Martin Interpretating Date/Time 07/17/2017 14:27:47
== END 2017-07-17 01:31 | disposition home or self-care (01) ==
LOC: PHED 20:43
DX: N13.9 Obstructive and reflux uropathy, unspecified (principal); N20.0 Calculus of kidney; R60.0 Localized edema; I48.91 Unspecified atrial fibrillation; I11.0 Hypertensive heart disease with heart failure; I50.9 Heart failure, unspecified; E11.9 Type 2 diabetes mellitus without complications; Z86.718 Personal history of other venous thrombosis and embolism; Z87.442 Personal history of urinary calculi
CPT/HCPCS: 51702; 74176; 80053; 81001; 83880; 85025; 85610; 93005; 96374; 99284; J2270

== ENCOUNTER → 2017-08-24 | Day surgery (SDC) | payer MEDICARE, MEDICAID ==
[~2017-08-24] VITALS: Ht 157.5 cm; Wt 75.0 kg
[~2017-08-24] MED LIST changes: +BACITRACIN TOP OINT 15 GM TUBE ONE; +BUPIVACAINE/EPINEPHRINE 0.5% PF 30 ML VIAL ONE; +CARD180C5 PO; +CHLORHEXIDINE GLUCONATE 2 % 1 PACK (2 CLOTHS) TOPICAL PRN; -FISH500C; +FISH500C PO; +GABA300C5 PO; +LACTATED RINGER'S 1000 ML IV PRN; +METOPROLOL TARTRATE 25 MG TAB PO PRN; +MIDAZOLAM HCL 2 MG/2 ML VIAL ONE; +MORP1TAB25 PO; +POVIDONE IODINE 5% (ANTISEPSIS KIT) 4 APPLICATIONS EACH NARE PRN; +SODIUM CHLORID 0.9% 500 ML IV PRN; +ceFAZolin 1,000 MG/NS 100 ML IV SCH
[2017-08-24 09:00] VITALS: TEMP 97.5
[2017-08-24 09:42] VITALS: BP 106/54; PULSE 67; RESP 14; O2SAT 96
--- NOTE | 2017-08-25 17:10 | PD.OP ---
Operative Report Date of Surgery: Aug 24, 2017 Preoperative Diagnosis: (1) Carpal tunnel syndrome of right wrist Postoperative Diagnosis: (1) Carpal tunnel syndrome of right wrist Procedure: Right open carpal tunnel release (22811) Surgeon: Toño Adhikari Fraud Examiner(s): . Operation and Findings: 57-year-old female who presented to clinic with right open carpal tunnel syndrome. Risks benefits and alternative treatments were discussed. All questions were answered and the patient expressed understanding. Patient elected to assume the risks of right open carpal tunnel release. Informed consent was obtained. Surgical site was marked in the preoperative holding bay. The patient was given antibiotics on-call to the operating room. The patient was taken to the operating room and all pressure points were padded. A surgical timeout was performed. After the smooth induction of general anesthesia the surgical site was instilled with quarter percent Marcaine with epinephrine. The surgical site was prepped and draped in the usual sterile fashion. The right upper extremity was exsanguinated using an Esmarch bandage and an appropriately padded upper extremity tourniquet was inflated to 250 mmHg. Incision was made over the radial aspect of the hypothenar eminence. Sharp dissection was carried down to and through the superficial palmar fascia until the transverse carpal ligament was appreciated. The transverse carpal ligament was meticulously and carefully lysed under direct vision, taking care to avoid injury to the subjacent structures. Following complete release of the transverse carpal ligament, attention was turned to the carpal tunnel structures , which were seen to be without injury. A limited epineurial neurolysis was performed. Following this the antebrachial fascia was bluntly dissected from the adjacent soft tissue structures and released using the tenotomies under direct vision. Following this the surgical site was irrigated. The skin was reapproximated with interrupted 4-0 nylons in a horizontal mattress fashion. The surgical site was cleaned and dressed with mupirocin ointment Xeroform gauze dry gauze fluffs soft roll and an [place] wrap. The tourniquet was released at 13 minutes. All digits pinked up nicely. All needle sponge and estimate counts were correct 2. The patient was awoken from anesthesia and arrived stable and doing well to the PACU. Toño Adhikari MD Aug 25, 2017 17:10
== END | disposition home or self-care (01) ==
LOC: PHSDC 06:21
PROVIDERS: ATTEND Student in an Organized Health Care Education/Training Program
DX: G56.01 Carpal tunnel syndrome, right upper limb (principal); I10 Essential (primary) hypertension
CPT/HCPCS: 01810; 64721; J0690; J2250; J7120